=== PATIENT | female | born 1970 | race Caucasian/White ===

== ENCOUNTER 2016-08-13 11:49 | Day surgery (SDC) | payer OTHER ==
[~2016-08-13] VITALS: Ht 172.7 cm; Wt 95.3 kg
[2016-08-13] VITALS (8 sets, daily range): BP systolic 128–146; BP diastolic 62–82
--- NOTE | ~2016-08-13 | O ---
[facility] [place] [address] OPERATIVE REPORT Name: NURA LOMBARDI Room #: 539-P [facility]#: [id number] Admission: 08/13/16 Attend Phys: Santana Dick MD Discharge: Date of : 66 Report #: [id number] THIS REPORT FOR: //name// CC: Gregor Nuñez DO Santana Dick DATE OF SERVICE: 08/13/2016 Patient of Santana Dick, Dr. Gregor Sr and Dr. Eben Nuñez. PREOPERATIVE DIAGNOSES: Cholelithiasis, cholecystitis, biliary colic, focal nodular hyperplasia of the liver. POSTOPERATIVE DIAGNOSES: Cholelithiasis, cholecystitis, biliary colic, focal nodular hyperplasia of the liver. PROCEDURE: Laparoscopic cholecystectomy with 2 core needle biopsies of the liver. SURGEON: Santana Dick M.D. TEACHER OF [employer] IMPAIRED: Yvette Best RN. ANESTHESIA: General. DESCRIPTION OF PROCEDURE: The patient was brought to the operating room and placed on the operative table in the supine position. Sequential compression devices were in place for DVT prophylaxis. She received an appropriate preoperative dose of antibiotics. The patient underwent a general endotracheal anesthesia and the abdomen was then prepped and draped in a sterile fashion. Skin and subcutaneous tissue around the umbilicus was then infiltrated with 0.5% Marcaine. Infraumbilical skin incision was then performed using #11 scalpel blade. Hemostasis obtained using electrocautery. Dissection was carried down through subcutaneous tissue of the fascia, which was then grasped between 2 Cathy clamps and incised with curved Jarrett scissors. Peritoneum was entered and a pursestring suture of 0 Vicryl was then placed in the fascia. A 12 mm disposable Abigail port was inserted through the opening and held into place with the pursestring suture. Pneumoperitoneum was obtained to a level of 10-15 mmHg. Laparoscope was inserted through this port and exploration was performed, which revealed a somewhat dilated gallbladder. There were some adhesions over the dome of the liver near the falciform ligament very superiorly which appeared to be in an area of the focal nodular hyperplasia. It was presumed these adhesions were from a previous biopsy. There were no other intraabdominal abnormalities. [address] [address] OPERATIVE REPORT Name: HARJITNURA Room #: 539-P [facility]#: [id number] Admission: 08/13/16 Attend Phys: Santana Dick MD Discharge: Date of : 66 Report #: [id number] Two lateral 5 mm Surgiport as well as an upper midline 11 mm Surgiport were then inserted under direct visualization after infiltration with 0.5% Marcaine. The gallbladder was then grasped and retracted superiorly and the cystic duct and artery were then dissected free. Cystic common bile duct junction was clearly identified. The cystic artery was dissected free. The cystic artery was then doubly clipped on each side and divided with the scissors. The cystic duct was then triply clipped on the common bile duct side, doubly clipped on the gallbladder side and divided with the scissors. The gallbladder was then dissected free from the bed using the hook electrocautery. Prior to completing the dissection, the gallbladder was retracted superiorly and the bed inspected for hemostasis, which was obtained using the electrocautery and found to be intact. The gallbladder was then transected and brought out through the periumbilical port and sent as specimen to pathology. Port was then returned to the abdomen. The area was then copiously irrigated with warm saline solution, which was suctioned free and hemostasis was checked and found to be intact. Using the monopty core needle biopsy, the first biopsy was obtained from the lesion over the dome near the falciform ligament. This was sent as specimen to pathology. Meticulous hemostasis was obtained in the area using the electrocautery. There was a much smaller lesion just medial to the gallbladder and this was then also biopsied using the monopty core needle biopsy. Both these specimens were sent to pathology together for permanent study. Once again, meticulous hemostasis was checked and obtained using electrocautery and found to be intact. Ports were then all removed under direct visualization, hemostasis intact at each port site. Pneumoperitoneum was released and the periumbilical port was then also removed under direct visualization, hemostasis intact at that port site as well. Periumbilical fascia was then closed using the 0 Vicryl pursestring suture. The upper midline fascia was then closed using a [id number] 0 Vicryl suture. The skin was then closed using interrupted vertical mattress 5-0 nylon sutures and the wound was dressed with Band-Aids. The patient was then awakened from the general endotracheal anesthesia, extubated, and taken to recovery room in good condition. Estimated blood loss was approximately 20 mL and the patient tolerated procedure well. All sponge, lap and instrument counts correct times 2. <ELECTRONICALLY SIGNED> By: Santana Dick MD 08/14/16 0828 [id number] Santana Dick MD /nt
--- NOTE | ~2016-08-13 | H ---
[facility] [place] [address] [address] HISTORY AND PHYSICAL Name: NURA LOMBARDI Room #: [facility] M.R.#: [id number] Admission: Attend Phys: Santana Dick MD Discharge: Date of : 66 Report #: [id number] THIS REPORT FOR: //name// CC: Gregor Nuñez DO DATE OF SURGERY: 08/13/[address] Santana Dick and Dr. Gregor Sr and Eben Nuñez. CHIEF COMPLAINT: Abdominal pain and nausea. HISTORY OF PRESENT ILLNESS: The patient is a 46-year-old white female who presents to surgery with abdominal pain and nausea with an abnormal hepatobiliary scan. She had an ultrasound of the abdomen, which confirmed stability of some previously diagnosed liver lesions. The gallbladder did not have any wall thickening or gallstones. Common bile duct was normal. She did have a hepatobiliary scan, which showed a decreased gallbladder ejection fraction at 21%. At that time, the hepatobiliary scan did not reproduce any of her symptoms. After full discussion with the patient and her , the diagnosis, prognosis and treatment options, I carefully and thoroughly discussed with the patient that gallbladder surgery may relieve all, some or none of her symptoms. They state they understood and wished to proceed with surgery. PAST MEDICAL HISTORY: Anxiety, gastroesophageal reflux disease, benign liver masses. PAST SURGICAL HISTORY: Hysterectomy in 2014. MEDICATIONS: Celexa, omeprazole. ALLERGIES: TOPICAL ACNE MEDICATIONS. FAMILY HISTORY: Mother of colon cancer at age 63. Father at age 65 of unknown etiology. SOCIAL HISTORY: The patient is , does not smoke. REVIEW OF SYSTEMS: Pertinent positives as above. Full review of systems otherwise negative. PHYSICAL EXAMINATION: GENERAL: Well-developed, well-nourished, obese white female in no acute distress. VITAL SIGNS: Stable. She is afebrile. HEENT: Sclerae are nonicteric. Mucous membranes moist and pink. No adenopathy. [facility] [address] [place] [address] HISTORY AND PHYSICAL Name: NURA LOMBARDI Room #: [facility]..#: [id number] Admission: Attend Phys: Santana Dick MD Discharge: Date of : 66 Report #: [id number] NECK: No thyromegaly. LUNGS: Clear to auscultation bilaterally. CARDIOVASCULAR: Regular rate and rhythm, no murmurs, S3 or S4. Normal PMI. ABDOMEN: Soft, flat, nontender, no palpable masses, no organomegaly, no hernias. EXTREMITIES: No clubbing, cyanosis or edema. NEUROLOGIC: Intact with a clear mental status. IMPRESSION: A 46-year-old white female with biliary dyskinesia, possible gallstones and focal nodular hyperplasia of the liver. Fully discussed with the patient and her the diagnosis, prognosis and treatment options and the risks and benefits of each and I have carefully and thoroughly explained to them that gallbladder surgery may relieve all, some or none of her symptoms . They state they understand and wished to proceed with surgery. We also discussed performing a needle biopsy of the liver and they state they understand and agree to the above. PLAN: We will perform laparoscopic cholecystectomy with core needle biopsy of the liver under general endotracheal anesthesia ____ observation admission to [facility]. The procedure and its risks, benefits and possible complications including possible open cholecystectomy and possible failure to obtain a needle biopsy of the liver were fully discussed with the patient and her . They state they understand and agreed to the proposed surgery. <ELECTRONICALLY SIGNED> By: Santana Dick MD 08/13/16 0844 [id number] Santana Dick MD /nt
--- NOTE | ~2016-08-13 | S ---
[facility] [address] [place] [address] SURGICAL PATH RPT PROCEDURE Name: NURA LOMBARDI Room #: [facility] M.R.#: [id number] Admission: 08/13/16 Date of : 66 Discharge: 08/14/16 Report #: [id number] Path Case #: [id number] PATHOLOGY REPORT DRAFT COLLECTION DATE: 08/13/2016 RECEIVED DATE: 08/14/2016 SPECIMEN(S) RECEIVED: Norman ReyLiver biopsy
[~2016-08-13 11:49] MED LIST: ADVIL100 M2 PO; CELEXA40 MG PO; CLARITIN10 MG PO; DESYREL50 MG PO; IRON PO; PEPCID40 MG PO; STOOL SOFTENER50 MG PO
[2016-08-13] MEDS ORDERED: NORCO 5-325 TA1 EACH PO (16:34)
[2016-08-14] VITALS: BP 132/71
[2016-08-14 06:25] VITALS: BP 127/58
[2016-08-14 07:30] VITALS: BP 117/59
[2016-08-14 08:30] VITALS: BP 127/58
[2016-08-14 09:02] VITALS: BP 127/58
[2016-08-14 09:44] VITALS: BP 127/58
== END 2016-08-14 10:00 | disposition home or self-care (01) ==
LOC: OR 11:49 → TBA 11:50 → 5S 17:17 → OR 08-14 10:00
DX: K80.10 Calculus of gallbladder with chronic cholecystitis without obstruction (principal); K80.40 Calculus of bile duct with cholecystitis, unspecified, without obstruction; K76.89 Other specified diseases of liver; F41.9 Anxiety disorder, unspecified; F32.9 Major depressive disorder, single episode, unspecified; G47.33 Obstructive sleep apnea (adult) (pediatric); K21.9 Gastro-esophageal reflux disease without esophagitis; Z90.710 Acquired absence of both cervix and uterus
CPT/HCPCS: 50010; 50101; 50411; 50555; 50558; 51046; 51489; 52266; 53314; 56462; 56524; 56528; 62110; 62900; 70005